=== PATIENT | male | born 1995 | race Caucasian/White ===

== ENCOUNTER → 2023-06-17 | Emergency (ER) | payer OTHER, SELFPAY ==
[~2023-06-17] MED LIST: LIDOCAINE VISCOUS 2% 10ML ORAL SOLN ONE; MAGNES/ALUMIN/SIMET 30ML UCUP ONE
--- NOTE | 2023-06-17 22:06 | RAD REPORT ---
EXAM DESCRIPTION: RAD - Neck Soft Tissue - 06/17/2023 9:08 pm CLINICAL HISTORY: Pain COMPARISON: None. TECHNIQUE: AP and lateral views of the neck soft tissues. FINDINGS: No radiopaque foreign bodies. Airway is patent. Prevertebral and paraspinal soft tissues a ppear unremarkable. Normal shadow of the epiglottis. No suspicious osseous abnormality. IMPRESSION: Normal radiographic evaluation of the neck soft tissues.
--- NOTE | 2023-06-17 23:16 | ER ---
Nurse's Notes [facility] Name: Joshua Franks Age: 28 yrs Sex: Male : 1995 Arrival Date: 06/17/2023 Time: 20:25 Bed DX1 Private MD: Diagnosis: Esophagitis, unspecified Presentation: 06/17 20:50 Chief complaint: Patient states: Pt c/o having a pill stuck in his esophagus since this tl4 afternoon. Pt states he is unable to pass it with water. Pt is able to control his secretions. +pain. Coronavirus screen: At this time, the client does not indicate any symptoms associated with coronavirus-19. Ebola Screen: No symptoms or risks identified at this time. Initial Sepsis Screen: Does the patient meet any 2 criteria? No. Patient's initial sepsis screen is negative. Does the patient have a suspected source of infection? No. Patient's initial sepsis screen is negative. Risk Assessment: Do you want to hurt yourself or someone else? Patient reports no desire to harm self or others. Onset of symptoms was June 17, 2023 at 14:00. 20:50 Method Of Arrival: Ambulatory tl4 20:50 Acuity: RAMEZ 3 tl4 Triage Assessment: 20:54 General: Appears uncomfortable, Behavior is calm, cooperative. Pain: Denies pain. EENT: tl4 Reports difficulty swallowing since 1400. Neuro: No deficits noted. Cardiovascular: No deficits noted. Respiratory: No deficits noted. Denies cough, shortness of breath. GI: No deficits noted. No signs and/or symptoms were reported involving the gastrointestinal system. : No deficits noted. No signs and/or symptoms were reported regarding the genitourinary system. Derm: No deficits noted. No signs and/or symptoms reported regarding the dermatologic system. Musculoskeletal: No deficits noted. No signs and/or symptoms reported regarding the musculoskeletal system. Historical: - Allergies: 20:53 Ibuprofen; tl4 - PMHx: 20:53 Migraine; Hypertensive disorder; Bipolar disorder; tl4 - Immunization history:: Adult Immunizations unknown. - Social history:: Smoking status: Patient denies any tobacco usage or history of. - Family history:: not pertinent. Screenin:38 [facility] ED Fall Risk Assessment (Adult) Score/Fall Risk Level 0 - 2 = Low Risk. Abuse as6 screen: Denies threats or abuse. Denies injuries from another. Nutritional screening: No deficits noted. Tuberculosis screening: No symptoms or risk factors identified. Vital Signs: 20:50 BP 169 / 115; Pulse 104; Resp 18; Temp 98.6(O); Pulse Ox 100% on R/A; Weight 103.87 kg; tl4 Height 6 ft. 0 in. ; Pain 0/10; 23:39 BP 158 / 91; Pulse 87; Resp 18; Pulse Ox 97% ; as6 20:50 Body Mass Index 31.06 (103.87 kg, 182.88 cm) tl4 20:50 Pain Scale: Adult tl4 ED Course: 20:27 Patient arrived in ED. rg4 20:47 Monty Moon MD is Attending Physician. [facility] 20:53 Triage completed. tl4 20:54 Arm band placed on left wrist. tl4 21:10 Neck Soft Tissue XRAY In Process Unspecified. EDFL 23:16 Lor Sanders MD is Referral Physician. [facility] 23:38 Bed in low position. Call light in reach. Provided Education on: follow up with GI. as6 23:38 No provider procedures requiring assistance completed. Patient did not have IV access as6 during this emergency room visit. Administered Medications: 23:37 Drug: GI Cocktail without - (Maalox PO 30 ml, Lidocaine Mucous Membrane 2 % 15 as6 ml) PO once Route: PO; 23:38 Follow up: Response: No adverse reaction as6 Medication: 23:39 VIS not applicable for this client. as6 Outcome: 23:16 Discharge ordered by . [facility] 23:38 Discharged to home ambulatory, as6 23:38 Condition: stable 23:38 Discharge instructions given to patient, Instructed on discharge instructions, follow up and referral plans. medication usage, Demonstrated understanding of instructions, follow-up care, medications, Prescriptions given X 2, 23:39 Patient left the ED. as6 Signatures: Dispatcher [employer] EDFL Monty Moon MD MD cha Garcia, Rubi rg4 Yuriy Toney RN RN as6 Blaise Rincon RN RN tl4
--- NOTE | 2023-06-17 23:16 | EDPHYS ---
Physician Documentation [facility] Name: Joshua Franks Age: 28 yrs Sex: Male : 1995 Arrival Date: 06/17/2023 Time: 20:25 Bed DX1 Private MD: ED Physician Monty Moon HPI: 06/17 23:12 This 28 yrs old Male presents to ER via Ambulatory with complaints of Foreign herb Body In Throat. 23:12 The patient presents with sore throat, dysphagia, a foreign body sensation in the herb throat. The patient describes throat pain as constant. Onset: The symptoms/episode began/occurred today. Severity of symptoms: At their worst the symptoms were mild, in the emergency department the symptoms are unchanged. Modifying factors: The symptoms are alleviated by nothing, the symptoms are aggravated by fluids, foods, swallowing, Patient's oral intake status: good. Associated signs and symptoms: The patient has no apparent associated signs or symptoms. The patient has not experienced similar symptoms in the past. Historical: - Allergies: 20:53 Ibuprofen; tl4 - PMHx: 20:53 Migraine; Hypertensive disorder; Bipolar disorder; tl4 - Immunization history:: Adult Immunizations unknown. - Social history:: Smoking status: Patient denies any tobacco usage or history of. - Family history:: not pertinent. ROS: 23:12 Constitutional: Negative for fever, chills, and weight loss, Eyes: Negative for injury, herb pain, redness, and discharge, Neck: Negative for injury, pain, and swelling, Cardiovascular: Negative for chest pain, palpitations, and edema, Respiratory: Negative for shortness of breath, cough, wheezing, and pleuritic chest pain, Abdomen/GI: Negative for abdominal pain, nausea, vomiting, diarrhea, and constipation, Back: Negative for injury and pain, : Negative for injury, bleeding, discharge, and swelling, MS/Extremity: Negative for injury and deformity, Skin: Negative for injury, rash, and discoloration, Neuro: Negative for headache, weakness, numbness, tingling, and seizure, Psych: Negative for depression, anxiety, suicide ideation, homicidal ideation, and hallucinations, Allergy/Immunology: Negative for hives, rash, and allergies, Endocrine: Negative for neck swelling, polydipsia, polyuria, polyphagia, and marked weight changes, Hematologic/Lymphatic: Negative for swollen nodes, abnormal bleeding, and unusual bruising, 23:12 ENT: Positive for foreign body sensation, sore throat, Exam: 23:12 Constitutional: This is a well developed, well nourished patient who is awake, alert, herb and in no acute distress. Head/Face: Normocephalic, atraumatic. Eyes: Pupils equal round and reactive to light, extra-ocular motions intact. Lids and lashes normal. Conjunctiva and sclera are non-icteric and not injected. Cornea within normal limits. Periorbital areas with no swelling, redness, or edema. ENT: Nares patent. No nasal discharge, no septal abnormalities noted. Tympanic membranes are normal and external auditory canals are clear. Oropharynx with no redness, swelling, or masses, exudates, or evidence of obstruction, uvula midline. Mucous membranes moist. Neck: Trachea midline, no thyromegaly or masses palpated, and no cervical lymphadenopathy. Supple, full range of motion without nuchal rigidity, or vertebral point tenderness. No Meningismus. Chest/axilla: Normal chest wall appearance and motion. Nontender with no deformity. No lesions are appreciated. Cardiovascular: Regular rate and rhythm with a normal S1 and S2. No gallops, murmurs, or rubs. Normal PMI, no JVD. No pulse deficits. Respiratory: Lungs have equal breath sounds bilaterally, clear to auscultation and percussion. No rales, rhonchi or wheezes noted. No increased work of breathing, no retractions or nasal flaring. Abdomen/GI: Soft, non-tender, with normal bowel sounds. No distension or tympany. No guarding or rebound. No evidence of tenderness throughout. Back: No spinal tenderness. No costovertebral tenderness. Full range of motion. Male : Normal genitalia with no discharge or lesions. Skin: Warm, dry with normal turgor. Normal color with no rashes, no lesions, and no evidence of cellulitis. MS/ Extremity: Pulses equal, no cyanosis. Neurovascular intact. Full, normal range of motion. Neuro: Awake and alert, GCS 15, oriented to person, place, time, and situation. Cranial nerves II-XII grossly intact. Motor strength 5/5 in all extremities. Sensory grossly intact. Cerebellar exam normal. Normal gait. Psych: Awake, alert, with orientation to person, place and time. Behavior, mood, and affect are within normal limits. Vital Signs: 20:50 BP 169 / 115; Pulse 104; Resp 18; Temp 98.6(O); Pulse Ox 100% on R/A; Weight 103.87 kg; tl4 Height 6 ft. 0 in. ; Pain 0/10; 23:39 BP 158 / 91; Pulse 87; Resp 18; Pulse Ox 97% ; as6 20:50 Body Mass Index 31.06 (103.87 kg, 182.88 cm) tl4 20:50 Pain Scale: Adult tl4 MDM: 20:47 Patient medically screened. herb 21:51 Patient medically screened. herb 23:14 Differential diagnosis: apthous stomatitis, gastroesophageal reflux disease, herb laryngitis, peritonsillar abscess pharyngitis. Data reviewed: vital signs, nurses notes, radiologic studies, plain films. Consideration of Admission/Observation Escalation of care including admission/observation considered. I considered the following discharge prescriptions or medication management in the emergency department Medications were administered in the Emergency Department. See MAR. Test considered but Not performed: Labs: NO CBC, NO COMP MET. Care significantly affected by the following chronic conditions: Hypertension, MIGRAINE , BIPOLAR. 06/17 20:48 Order name: Neck Soft Tissue XRAY; Complete Time: 23:12 herb 06/17 20:48 Order name: PO challenge: water; Complete Time: 23:38 herb Administered Medications: 23:37 Drug: GI Cocktail without - (Maalox PO 30 ml, Lidocaine Mucous Membrane 2 % 15 as6 ml) PO once Route: PO; 23:38 Follow up: Response: No adverse reaction as6 Disposition Summary: 06/17/23 23:16 Discharge Ordered Notes: Location: Home herb Problem: new herb Symptoms: have improved herb Condition: Stable herb Diagnosis - Esophagitis, unspecified herb Followup: herb - With: Private Physician - When: 1 - 2 days - Reason: Recheck today's complaints, Continuance of care, Re-evaluation by your physician Followup: herb - With: Lor Sanders MD - When: 2 - 3 days - Reason: Recheck today's complaints, Re-evaluation by your physician Discharge Instructions: - Discharge Summary Sheet herb - Esophagitis herb Forms: - Medication Reconciliation Form herb - Thank You Letter herb - Antibiotic Education herb - Prescription Opioid Use herb - Patient Portal Instructions [facility] - Leadership Thank You Letter [facility] Prescriptions: - Maalox Maximum Strength 400-400-40 mg/5 mL Oral suspension - take 10 milliliter ORAL route 3 times per day NEEDED; 180 milliliter; [facility] Refills: 0, Product Selection Permitted - Protonix 40 mg Oral Tablet - take 1 tablet ORAL route once daily; 30 tablet; Refills: 0, Product Selection [facility] Permitted Signatures: Dispatcher [employer] Monty Beal MD MD cha Slawson, Ashby, RN RN as6 Blaise Rincon RN RN tl4
[2023-06-18] VITALS: BP 158/91; TEMP 98.6; O2SAT 97
== END ==
LOC: ER 20:25
DX: K20.90 Esophagitis, unspecified without bleeding (principal); Z88.6 Allergy status to analgesic agent
CPT/HCPCS: 70360